=== PATIENT | female | born 1955 | race Caucasian/White ===

== ENCOUNTER → 2016-05-11 | Day surgery (SDC) | payer OTHER ==
[~2016-05-11] MED LIST: ACTO5TAB; ATROPINE SULFATE 1% OPHT SOLN 2 ML BTL ONE; DEXAMETHASONE SOD PHOS 4 MG/ML VIAL ONE; EPINEPHrine HCL (1:1000) 1 MG/ML VIAL ONE; FLURBIPROFEN 0.03% OPHT SOLN 2.5 ML BTL ONE; HYALURONIDASE/LIDOCAINE/BUPIVACAINE 11 ML SYR TL ONE; LACTATED RINGER'S 1000 ML INJ 1,000 ML ONE; MIDAZOLAM HCL 2 MG/2 ML VIAL ONE; NEOMYCIN/POLYMYXIN/DEXAMETHASONE OPTH OINT 3.5 GM TUBE ONE; ONDANSETRON HCL 4 MG/2 ML VIAL IV PUSH ONE; PHENYLEPHRINE HCL 2.5 % OPTH SOLN 15 ML BTL ONE; PRED20 PO; PROPOFOL 200 MG/20 ML AMP IV ONE; SODIUM CHLORIDE 0.9% INJ 10 ML ONE; SYNT25TA; TETRACAINE 0.5% OPTH SOLN 15 ML BTL ONE; TROPICAMIDE 1% OPHT SOLN 15 ML BTL ONE; VICOTAB4; ceFAZolin INJ 1,000 MG VIAL ONE
--- NOTE | 2016-05-25 13:37 | MP ---
cc: JAY ZAZUETA MD DATE OF SURGERY 05/21/2016 DATE OF 1955 PREOPERATIVE DIAGNOSIS Retained cataract fragments left eye. POSTOPERATIVE DIAGNOSIS Retained cataract fragments left eye. PROCEDURE Pars plana vitrectomy, pars plana lensectomy left eye. ANESTHESIA MAC SURGEON Dr. Zazueta COMPLICATIONS None PROCEDURE After informed consent was obtained, the patient was anesthetized with retrobulbar anesthesia. She was then brought to the operating room, prepped and draped in the usual sterile fashion. A wire eyelid speculum was placed in the patient's left eye. 23-gauge vitrectomy cannulas were then placed in the lower temporal, supratemporal and supranasal quadrants 3 mm posterior to the corneal scleral limbus. Infusion cannula was placed lower temporally. A core vitrectomy was then performed. The lens nucleus and cortical material was then removed using the vitreous cutter. Vitrectomy was carried out as far as possible to the vitreous space. Careful indirect ophthalmoscopy and scleral depression was then performed. No peripheral retinal breaks were noted. The three vitrectomy cannulas were then removed. Subconjunctival injections of Dexamethasone and Ancef were placed. Atropine drops, Maxitrol ointment and patch and shield were then applied. The patient tolerated the procedure well. There were no complications. She will followup tomorrow in our [facility] office. Jay Zazueta MD TAB/DJL /9:24 AM /1:23 PM
== END | disposition home or self-care (01) ==
LOC: ESDC 12:55
PROVIDERS: ATTEND Ophthalmology Retina Specialist
DX: H59.022 Cataract (lens) fragments in eye following cataract surgery, left eye (principal)
CPT/HCPCS: 00145; 67036; J0171; J0690; J1100; J2250; J2405; J3010; J7120

== ENCOUNTER 2017-07-15 04:21 | Emergency (ER) | payer BC, OTHER ==
[~2017-07-15] VITALS: Ht 154.9 cm; Wt 70.0 kg
[~2017-07-15 04:21] MED LIST changes: -ATROPINE SULFATE 1% OPHT SOLN 2 ML BTL ONE; -DEXAMETHASONE SOD PHOS 4 MG/ML VIAL ONE; -EPINEPHrine HCL (1:1000) 1 MG/ML VIAL ONE; -FLURBIPROFEN 0.03% OPHT SOLN 2.5 ML BTL ONE; -HYALURONIDASE/LIDOCAINE/BUPIVACAINE 11 ML SYR TL ONE; -LACTATED RINGER'S 1000 ML INJ 1,000 ML ONE; -MIDAZOLAM HCL 2 MG/2 ML VIAL ONE; -NEOMYCIN/POLYMYXIN/DEXAMETHASONE OPTH OINT 3.5 GM TUBE ONE; -ONDANSETRON HCL 4 MG/2 ML VIAL IV PUSH ONE; -PHENYLEPHRINE HCL 2.5 % OPTH SOLN 15 ML BTL ONE; -PROPOFOL 200 MG/20 ML AMP IV ONE; -SODIUM CHLORIDE 0.9% INJ 10 ML ONE; -TETRACAINE 0.5% OPTH SOLN 15 ML BTL ONE; -TROPICAMIDE 1% OPHT SOLN 15 ML BTL ONE; -ceFAZolin INJ 1,000 MG VIAL ONE
[2017-07-15 04:29] VITALS: BP 205/77; PULSE 94; RESP 18; TEMP 98.5; O2SAT 99
[2017-07-15 04:33] VITALS: BP 182/76
[2017-07-15 04:39] VITALS: BP 183/72; PULSE 86; RESP 18; O2SAT 98
[2017-07-15] MEDS ORDERED: LEVO-86 PO (04:39)
[2017-07-15] MEDS ORDERED: GABA600T PO (04:39)
[2017-07-15] MEDS ORDERED: OXYC-395 PO (04:39)
[2017-07-15 04:48] VITALS: BP 183/72; PULSE 82; RESP 16; O2SAT 97
[2017-07-15 05:15] VITALS: BP 141/65; PULSE 87; RESP 16; O2SAT 98
[2017-07-15] MEDS ORDERED: KETOROLAC TROMETHAMINE 30 MG/ML (IVP) VIAL IV PUSH ONE (05:30)
[2017-07-15 05:42] LABS: AUTOMATED NEUTROPHIL # 4.6 TH/MM3 (1.8-7.7); BASOPHIL % 0.5 % (0.0-2.0); EOSINOPHIL # 0.1 TH/MM3 (0-0.4); EOSINOPHIL % 1.9 % (0.0-4.0); HEMATOCRIT 34.4 % (35.0-46.0); HEMOGLOBIN 12.3 GM/DL (11.6-15.3); LYMPH % 21.5 % (9.0-44.0); LYMPHOCYTE # 1.5 TH/MM3 (1.0-4.8); MEAN CORPUSCULAR HEMOGLOBIN 33.4 PG (27.0-34.0); MEAN CORPUSCULAR HGB CONC 35.9 % (32.0-36.0); MEAN PLATELET VOLUME 8.1 FL (7.0-11.0); MONOCYTE # 0.6 TH/MM3 (0-0.9); NEUT % 67.1 % (16.0-70.0); PLATELET COUNT 274 TH/MM3 (150-450); RED CELL DISTRIBUTION WIDTH 12.2 % (11.6-17.2); WHITE BLOOD COUNT 6.9 TH/MM3 (4.0-11.0)
[2017-07-15 06:02] LABS: ALKALINE PHOSPHATASE 94 U/L (45-117); TOTAL BILIRUBIN ADULT 0.5 MG/DL (0.2-1.0); TOTAL PROTEIN 6.8 GM/DL (6.4-8.2)
[2017-07-15 06:10] LABS: ALBUMIN 3.4 GM/DL (3.4-5.0); ALT (GPT) 191 U/L (10-53); AST (GOT) 161 U/L (15-37); BICARBONATE 22.2 MEQ/L (21.0-32.0); BLOOD UREA NITROGEN 16 MG/DL (7-18); CALCIUM 8.6 MG/DL (8.5-10.1); CHLORIDE 111 MEQ/L (98-107); CREATININE 0.58 MG/DL (0.50-1.00); GLOMERULAR FILTRATION RATE 106 ML/MIN (>89); GLUCOSE,RANDOM 103 MG/DL (74-106); SODIUM (NA) 142 MEQ/L (136-145)
[2017-07-15] MEDS ORDERED: CLIN300C5 PO (06:40)
--- NOTE | 2017-07-15 06:40 | PD ---
HPI Chief Complaint: Edema Time Seen by Provider: 05:05 Travel History International Travel<30 days: No Contact w/Intl Traveler<30days: No Traveled to known affect area: No History of Present Illness HPI Patient is a 61-year-old female who comes in complaining of pain and swelling to the right side of her face. She says it has been going on for the past 3 days. She denies any pain or swelling inside of her mouth. She has not had any fever or chills. She says she has not taken anything for the pain. She does not recall any wounds or bites to her face. She does not recall any injury. She says this is never happened before. She denies any itching. Severity is mild to moderate. PFSH Past Medical History Diminished Hearing: No Musculoskeletal: Yes (OSTEOPOROSIS) Thyroid Disease: Yes (hypothyriodism) Tetanus Vaccination: Unknown Influenza Vaccination: Yes ?: Not Past Surgical History Cholecystectomy: Yes Hysterectomy: Yes Social History Alcohol Use: No Tobacco Use: Yes (APPD) Substance Use: No Allergies-Medications (Allergen,Severity, Reaction): Coded Allergies: Sulfa (Sulfonamide Antibiotics) (Verified Allergy, Severe, 07/15/17) red and itchy Reported Meds & Prescriptions Reported Meds & Active Scripts Active Reported Gabapentin 600 Mg Tab 600 Mg PO TID Oxycodone (Oxycodone HCl) 10 Mg Tab 10 Mg PO Q6H PRN Synthroid (Levothyroxine Sodium) 137 Mcg Tab 137 Mcg PO DAILY Review of Systems Except as stated in HPI: all other systems reviewed are Neg General / Constitutional: No: Fever, Chills HENT: No: Headaches, Lightheadedness Cardiovascular: No: Chest Pain or Discomfort Respiratory: No: Shortness of Breath Gastrointestinal: No: Nausea, Vomiting, Abdominal Pain Skin: Positive Change in Pigmentation Neurologic: No: Weakness, Dizziness Physical Exam Narrative GENERAL: Awake and alert, no acute distress. SKIN: Right cheek is erythematous and warm. There is no defined area of fluctuance, no wounds. HEAD: Atraumatic. Normocephalic. EYES: Pupils equal and round. No scleral icterus. Extraocular movements intact. ENT: Mucous membranes pink and moist. NECK: Trachea midline. No JVD. CARDIOVASCULAR: Regular rate and rhythm. No murmur appreciated. RESPIRATORY: No accessory muscle use. Clear to auscultation. Breath sounds equal bilaterally. GASTROINTESTINAL: Abdomen soft, non-tender, nondistended. MUSCULOSKELETAL: No obvious deformities. No clubbing. No cyanosis. No edema. NEUROLOGICAL: Awake and alert. No obvious cranial nerve deficits. Motor grossly within normal limits. Normal speech. PSYCHIATRIC: Appropriate mood and affect; insight and judgment normal. Data Data Last Documented VS Vital Signs Date Time Temp Pulse Resp B/P (MAP) Pulse Ox O2 Delivery O2 Flow Rate FiO2 07/15/17 05:15 87 16 141/65 (90) 98 Room Air 07/15/17 04:29 98.5 Orders Orders Iv Access Insert/Monitor (07/15/17 05:19) Complete Blood Count With Diff (07/15/17 05:19) Comprehensive Metabolic Panel (07/15/17 05:19) Ketorolac Inj (Toradol Inj) (07/15/17 05:30) Labs Laboratory Tests Test 07/15/17 05:25 White Blood Count 6.9 TH/MM3 Red Blood Count 3.70 MIL/MM3 Hemoglobin 12.3 GM/DL Hematocrit 34.4 % Mean Corpuscular Volume 93.0 FL Mean Corpuscular Hemoglobin 33.4 PG Mean Corpuscular Hemoglobin Concent 35.9 % Red Cell Distribution Width 12.2 % Platelet Count 274 TH/MM3 Mean Platelet Volume 8.1 FL Neutrophils (%) (Auto) 67.1 % Lymphocytes (%) (Auto) 21.5 % Monocytes (%) (Auto) 9.0 % Eosinophils (%) (Auto) 1.9 % Basophils (%) (Auto) 0.5 % Neutrophils # (Auto) 4.6 TH/MM3 Lymphocytes # (Auto) 1.5 TH/MM3 Monocytes # (Auto) 0.6 TH/MM3 Eosinophils # (Auto) 0.1 TH/MM3 Basophils # (Auto) 0.0 TH/MM3 CBC Comment DIFF FINAL Differential Comment Blood Urea Nitrogen 16 MG/DL Creatinine 0.58 MG/DL Random Glucose 103 MG/DL Total Protein 6.8 GM/DL Albumin 3.4 GM/DL Calcium Level 8.6 MG/DL Alkaline Phosphatase 94 U/L Aspartate Amino Transf (AST/SGOT) 161 U/L Alanine Aminotransferase (ALT/SGPT) 191 U/L Total Bilirubin 0.5 MG/DL Sodium Level 142 MEQ/L Potassium Level 3.9 MEQ/L Chloride Level 111 MEQ/L Carbon Dioxide Level 22.2 MEQ/L Anion Gap 9 MEQ/L Estimat Glomerular Filtration Rate 106 ML/MIN MDM Medical Decision Making Medical Screen Exam Complete: Yes Emergency Medical Condition: Yes Medical Record Reviewed: Yes Differential Diagnosis Cellulitis versus allergic reaction versus abscess Narrative Course Patient is a 61-year-old female who comes in complaining of pain and swelling to the right side of her face. Exam shows erythema and warmth to the right cheek. IV established, labs sent. Labs show elevated AST and ALT. Patient is not currently having any abdominal pain. She is advised of these results and advised follow-up with a primary doctor regarding this. Patient given Toradol for pain. She will be discharged with a prescription for clindamycin. She is advised to take all the antibiotic return for any worsening symptoms. Diagnosis Primary Impression: Facial cellulitis Patient Instructions: Cellulitis (ED), General Instructions Additional Instructions: Take all of your antibiotic. Follow-up with your primary care doctor. Your liver enzymes are elevated today, avoid Tylenol and have these rechecked with your primary care doctor. Return to the ED as needed for any worsening symptoms. Scripts Clindamycin (Clindamycin) 300 Mg Cap 600 MG PO Q8H for Infection for 7 Days, #42 CAP 0 Refills Prov: Mehnaz Parish MD 07/15/17 Disposition: 01 DISCHARGE HOME Condition: Stable Mehnaz Parish MD Jul 15, 2017 06:40
[2017-07-15 06:46] VITALS: BP 134/60
== END 2017-07-15 06:50 | disposition home or self-care (01) ==
LOC: NEPC 04:21
DX: L03.211 Cellulitis of face (principal); M81.0 Age-related osteoporosis without current pathological fracture; E03.9 Hypothyroidism, unspecified; F17.200 Nicotine dependence, unspecified, uncomplicated; Z79.899 Other long term (current) drug therapy; Z88.2 Allergy status to sulfonamides
CPT/HCPCS: 80053; 85025; 96374; 99284; J1885

== ENCOUNTER 2017-10-18 19:56 | Emergency (ER) | payer BC, OTHER ==
[~2017-10-18] VITALS: Ht 154.9 cm; Wt 77.3 kg
[~2017-10-18 19:56] MED LIST changes: -ACTO5TAB; +CLIN300C5 PO; +GABA600T PO; +LEVO-86 PO; +OXYC-395 PO; -PRED20 PO; -SYNT25TA; -VICOTAB4
[2017-10-18 20:15] VITALS: BP 146/66; PULSE 70; RESP 19; TEMP 98.8; O2SAT 97
[2017-10-18 21:57] VITALS: BP 150/64; PULSE 66; RESP 18; O2SAT 98
--- NOTE | 2017-10-18 22:05 | PD ---
HPI Chief Complaint: Edema Time Seen by Provider: 21:55 Travel History International Travel<30 days: No Contact w/Intl Traveler<30days: No Traveled to known affect area: No History of Present Illness HPI 62-year-old female with history of tobacco use and hypothyroidism presents after being sent by urgent care for evaluation of dyspnea and bilateral lower extremity edema. She reports over the past few weeks she has noticed mild dyspnea with exertion. She reports over the past 3 days she has incidentally noticed some swelling around her ankles. She reports some associated discomfort with this. Symptoms are mild to moderate, no obvious aggravating or relieving factors. She reports that she has also gained 12 pounds over the past 12 days. She denies chest pain, cough, congestion, chest pain, abdominal pain, nausea or vomiting. No history of CHF, cirrhosis, kidney disease, DVT or PE, no recent travel recent surgery. No other complaints at this time. PFSH Past Medical History Diminished Hearing: No Medical other: Yes (DDD) Musculoskeletal: Yes (OSTEOPOROSIS) Thyroid Disease: Yes (hypothyriodism) Tetanus Vaccination: < 5 Years Past Surgical History Cholecystectomy: Yes Hysterectomy: Yes Social History Alcohol Use: No Tobacco Use: Yes (APPD) Substance Use: No Allergies-Medications (Allergen,Severity, Reaction): Coded Allergies: Sulfa (Sulfonamide Antibiotics) (Verified Allergy, Severe, 10/18/17) red and itchy Reported Meds & Prescriptions Reported Meds & Active Scripts Active Reported Gabapentin 600 Mg Tab 600 Mg PO TID Oxycodone (Oxycodone HCl) 10 Mg Tab 10 Mg PO Q6H PRN Synthroid (Levothyroxine Sodium) 137 Mcg Tab 137 Mcg PO DAILY Review of Systems Except as stated in HPI: all other systems reviewed are Neg Physical Exam Narrative GENERAL: Well developed well-nourished female no acute distress SKIN: Warm and dry. HEAD: Atraumatic. Normocephalic. EYES: Pupils equal and round. No scleral icterus. No injection or drainage. ENT: No nasal bleeding or discharge. Mucous membranes pink and moist. NECK: Trachea midline. No JVD. CARDIOVASCULAR: Regular rate and rhythm. No murmur appreciated. RESPIRATORY: No accessory muscle use. Clear to auscultation. Breath sounds equal bilaterally. GASTROINTESTINAL: Abdomen soft, non-tender, nondistended. Hepatic and splenic margins not palpable. MUSCULOSKELETAL: No obvious deformities. There is mild nonpitting edema around the ankles bilaterally. NEUROLOGICAL: Awake and alert. No obvious cranial nerve deficits. Motor grossly within normal limits. Normal speech. PSYCHIATRIC: Appropriate mood and affect; insight and judgment normal. Data Data Last Documented VS Vital Signs Date Time Temp Pulse Resp B/P (MAP) Pulse Ox O2 Delivery O2 Flow Rate FiO2 10/18/17 21:57 66 18 150/64 (92) 98 Room Air 10/18/17 20:15 98.8 Orders Orders Electrocardiogram (10/18/17 22:02) B-Type Natriuretic Peptide (10/18/17 22:02) Ckmb (Isoenzyme) Profile (10/18/17 22:02) Complete Blood Count With Diff (10/18/17 22:) Comprehensive Metabolic Panel (10/18/17 22:) Magnesium (Mg) (10/18/17 22:02) Prothrombin Time / Inr (Pt) (10/18/17 22:02) Act Partial Throm Time (Ptt) (10/18/17 22:02) Troponin I (10/18/17 22:02) Chest, Single Ap (10/18/17 22:02) Ecg Monitoring (10/18/17 22:02) Iv Access Insert/Monitor (10/18/17 22:02) Oximetry (10/18/17 22:02) Us Leg Venous Doppler Bilat (10/18/17 22:02) CKMB (10/18/17 22:05) CKMB% (10/18/17 22:05) Ed Discharge Order (10/19/17 00:01) Labs Laboratory Tests Test 10/18/17 22:05 10/18/17 23:37 Blood Urea Nitrogen 6 MG/DL Creatinine 0.57 MG/DL Random Glucose 81 MG/DL Total Protein 7.1 GM/DL Albumin 3.6 GM/DL Calcium Level 8.2 MG/DL Magnesium Level 2.2 MG/DL Alkaline Phosphatase 92 U/L Aspartate Amino Transf (AST/SGOT) 48 U/L Alanine Aminotransferase (ALT/SGPT) 80 U/L Total Bilirubin 0.3 MG/DL Sodium Level 143 MEQ/L Potassium Level 3.9 MEQ/L Chloride Level 109 MEQ/L Carbon Dioxide Level 25.7 MEQ/L Anion Gap 8 MEQ/L Estimat Glomerular Filtration Rate 108 ML/MIN Total Creatine Kinase 239 U/L Creatine Kinase MB 2.7 NG/ML Creatine Kinase MB % 1.1 % Troponin I LESS THAN 0.02 NG/ML B-Type Natriuretic Peptide 77 PG/ML White Blood Count 4.9 TH/MM3 Red Blood Count 3.73 MIL/MM3 Hemoglobin 12.0 GM/DL Hematocrit 35.4 % Mean Corpuscular Volume 95.0 FL Mean Corpuscular Hemoglobin 32.2 PG Mean Corpuscular Hemoglobin Concent 33.9 % Red Cell Distribution Width 13.0 % Platelet Count 233 TH/MM3 Mean Platelet Volume 8.1 FL Neutrophils (%) (Auto) 50.2 % Lymphocytes (%) (Auto) 35.1 % Monocytes (%) (Auto) 9.8 % Eosinophils (%) (Auto) 4.1 % Basophils (%) (Auto) 0.8 % Neutrophils # (Auto) 2.4 TH/MM3 Lymphocytes # (Auto) 1.7 TH/MM3 Monocytes # (Auto) 0.5 TH/MM3 Eosinophils # (Auto) 0.2 TH/MM3 Basophils # (Auto) 0.0 TH/MM3 CBC Comment DIFF FINAL Differential Comment MDM Medical Decision Making Medical Screen Exam Complete: Yes Emergency Medical Condition: Yes Medical Record Reviewed: Yes Differential Diagnosis New onset CHF, hypoalbuminemia, PE/DVT, nephrotic syndrome, pleural effusion, pneumonia Narrative Course The patient was placed on ECG monitoring pulse oximetry. A 12 EKG was obtained. Lab work, chest x-ray been ordered. Chest x-ray reveals mild atelectasis. CBC is unremarkable. Lab work is unremarkable. BMP was within normal limits. Bilateral lower extremity ultrasound was negative. I suspect that her mild nonpitting lower extremity edema secondary to dependent edema. At this point in time the plan is to discharge the patient have her follow-up with a primary care physician. She is stable for discharge. Diagnosis Primary Impression: Dependent edema Additional Instructions: Elevate the legs as needed, particularly after walking long distances. Follow- up close with primary care physician. Return for any emergent medical conditions. Med/Other Pt SpecificInfo: No Change to Meds Disposition: 01 DISCHARGE HOME Condition: Stable Blas Teixeira Oct 18, 2017 22:05
[2017-10-18 22:41] LABS: ALKALINE PHOSPHATASE 92 U/L (45-117); TOTAL BILIRUBIN ADULT 0.3 MG/DL (0.2-1.0); TOTAL PROTEIN 7.1 GM/DL (6.4-8.2); TROPONIN I LESS THAN 0.02 NG/ML (0.02-0.05)
--- NOTE | 2017-10-18 22:47 | RADRPT ---
EXAM DATE: 10/18/2017 10:40 PM EDT AGE/SEX: 62 years / Female INDICATIONS: Short of breath and lower extremity swelling for 3 days. CLINICAL DATA: This is the patient's initial encounter. Patient reports that signs and symptoms have been present for 3 days and indicates a pain score of 0/10. MEDICAL/SURGICAL HISTORY: None. None. COMPARISON: No prior exams available for comparison. FINDINGS: A single AP view of the chest demonstrates the diminished lung volumes and bibasilar densities. Heart normal in size. The cardiomediastinal contours are unremarkable. Osseous structures are intact. CONCLUSION: Diminished lung volumes and probable bibasilar atelectasis. Electronically signed by: Milton Hermosillo MD 10/18/2017 10:45 PM EDT
[2017-10-18 22:54] LABS: ALBUMIN 3.6 GM/DL (3.4-5.0); ALT (GPT) 80 U/L (10-53); AST (GOT) 48 U/L (15-37); BICARBONATE 25.7 MEQ/L (21.0-32.0); BLOOD UREA NITROGEN 6 MG/DL (7-18); CALCIUM 8.2 MG/DL (8.5-10.1); CHLORIDE 109 MEQ/L (98-107); CREATININE 0.57 MG/DL (0.50-1.00); GLOMERULAR FILTRATION RATE 108 ML/MIN (>89); GLUCOSE,RANDOM 81 MG/DL (74-106); MAGNESIUM 2.2 MG/DL (1.5-2.5); SODIUM (NA) 143 MEQ/L (136-145)
--- NOTE | 2017-10-18 23:45 | RADRPT ---
EXAM DATE: 10/18/2017 11:41 PM EDT AGE/SEX: 62 years / Female INDICATIONS: Bilateral lower extremity edema. CLINICAL DATA: This is the patient's initial encounter. Patient reports that signs and symptoms have been present for 3 days and indicates a pain score of 7/10. MEDICAL/SURGICAL HISTORY: . Hypothyroidism. Tobacco use. . Cholecystectomy. Hysterectomy. COMPARISON: No prior exams available for comparison. TECHNIQUE: Venous ultrasound of both lower extremities was performed from the inguinal ligament to t he proximal calf. Real-time, color Doppler and spectral tracing, compression and augmentation techni ques were used. FINDINGS: Right Leg: Normal compression of the deep venous system from the inguinal region to the proximal [place] f. No echogenic clot is seen. Normal response of the venous system to augmentation and respiration. Left Leg: Normal compression of the deep venous system from the inguinal region to the proximal calf . No echogenic clot is seen. Normal response of the venous system to augmentation and respiration. Other: None. CONCLUSION: 1. The study is negative for bilateral lower extremity deep venous thrombosis. Electronically signed by: Dmitry Roberts MD 10/18/2017 11:44 PM EDT
--- NOTE | 2017-10-18 23:47 | PD ---
Physical Exam Narrative I, Dr. Whitehead, have reviewed the advance practice practitioner's documentation and am in agreement, met with the patient face to face, made the diagnosis, and the medical decision making was done by me. *My assessment and Findings: Pulmonary edema vs. CHF vs. valve insufficiency 62yo F was sent here from urgent care because she has been feeling sob while walking for the last week. [place] said usually she walks a mile but now feels sob after walking less than a mile. Pt does not feel sob at rest. Denies any chest pain. She is very well appearing and has very mild edema in bilateral ankle. CXR showed diminished lung volumes and probable bibasilar atelectasis. Labs reviewed, no leukocytosis. H/H normal. CMP showed mildly elevated liver enzymes. This is lower than last time. Troponin negative. BNP normal at 77. Normal creatinine. US showed no DVT in bilateral lower extremity. Return precautions given. Data Data Last Documented VS Vital Signs Date Time Temp Pulse Resp B/P (MAP) Pulse Ox O2 Delivery O2 Flow Rate FiO2 10/18/17 21:57 66 18 150/64 (92) 98 Room Air 10/18/17 20:15 98.8 Orders Orders Electrocardiogram (10/18/17 22:02) B-Type Natriuretic Peptide (10/18/17 22:02) Ckmb (Isoenzyme) Profile (10/18/17 22:02) Complete Blood Count With Diff (10/18/17 22:02) Comprehensive Metabolic Panel (10/18/17 22:02) Magnesium (Mg) (10/18/17 22:02) Prothrombin Time / Inr (Pt) (10/18/17 22:02) Act Partial Throm Time (Ptt) (10/18/17 22:02) Troponin I (10/18/17 22:02) Chest, Single Ap (10/18/17 22:02) Ecg Monitoring (10/18/17 22:02) Iv Access Insert/Monitor (10/18/17 22:02) Oximetry (10/18/17 22:02) Us Leg Venous Doppler Bilat (10/18/17 22:02) CKMB (10/18/17 22:05) CKMB% (10/18/17 22:05) Ed Discharge Order (10/19/17 00:01) Labs Laboratory Tests Test 10/18/17 22:05 10/18/17 23:37 Prothrombin Time 9.9 SEC Prothromb Time International Ratio 1.0 RATIO Activated Partial Thromboplast Time 27.5 SEC Blood Urea Nitrogen 6 MG/DL Creatinine 0.57 MG/DL Random Glucose 81 MG/DL Total Protein 7.1 GM/DL Albumin 3.6 GM/DL Calcium Level 8.2 MG/DL Magnesium Level 2.2 MG/DL Alkaline Phosphatase 92 U/L Aspartate Amino Transf (AST/SGOT) 48 U/L Alanine Aminotransferase (ALT/SGPT) 80 U/L Total Bilirubin 0.3 MG/DL Sodium Level 143 MEQ/L Potassium Level 3.9 MEQ/L Chloride Level 109 MEQ/L Carbon Dioxide Level 25.7 MEQ/L Anion Gap 8 MEQ/L Estimat Glomerular Filtration Rate 108 ML/MIN Total Creatine Kinase 239 U/L Creatine Kinase MB 2.7 NG/ML Creatine Kinase MB % 1.1 % Troponin I LESS THAN 0.02 NG/ML B-Type Natriuretic Peptide 77 PG/ML White Blood Count 4.9 TH/MM3 Red Blood Count 3.73 MIL/MM3 Hemoglobin 12.0 GM/DL Hematocrit 35.4 % Mean Corpuscular Volume 95.0 FL Mean Corpuscular Hemoglobin 32.2 PG Mean Corpuscular Hemoglobin Concent 33.9 % Red Cell Distribution Width 13.0 % Platelet Count 233 TH/MM3 Mean Platelet Volume 8.1 FL Neutrophils (%) (Auto) 50.2 % Lymphocytes (%) (Auto) 35.1 % Monocytes (%) (Auto) 9.8 % Eosinophils (%) (Auto) 4.1 % Basophils (%) (Auto) 0.8 % Neutrophils # (Auto) 2.4 TH/MM3 Lymphocytes # (Auto) 1.7 TH/MM3 Monocytes # (Auto) 0.5 TH/MM3 Eosinophils # (Auto) 0.2 TH/MM3 Basophils # (Auto) 0.0 TH/MM3 CBC Comment DIFF FINAL Differential Comment MDM Supervised Visit with ZOHREH: Yes Interpretation(s) EKG: NSR 65bpm. Normal axis. No ST segment elevation or depression. Diagnosis Primary Impression: Dependent edema Dejah Whitehead DO Oct 18, 2017 23:47
[2017-10-18 23:52] LABS: AUTOMATED NEUTROPHIL # 2.4 TH/MM3 (1.8-7.7); BASOPHIL % 0.8 % (0.0-2.0); EOSINOPHIL # 0.2 TH/MM3 (0-0.4); EOSINOPHIL % 4.1 % (0.0-4.0); HEMATOCRIT 35.4 % (35.0-46.0); LYMPH % 35.1 % (9.0-44.0); LYMPHOCYTE # 1.7 TH/MM3 (1.0-4.8); MEAN CORPUSCULAR HEMOGLOBIN 32.2 PG (27.0-34.0); MEAN CORPUSCULAR HGB CONC 33.9 % (32.0-36.0); MEAN PLATELET VOLUME 8.1 FL (7.0-11.0); MONO % 9.8 % (0.0-8.0); MONOCYTE # 0.5 TH/MM3 (0-0.9); NEUT % 50.2 % (16.0-70.0); PLATELET COUNT 233 TH/MM3 (150-450); RED BLOOD COUNT 3.73 MIL/MM3 (4.00-5.30); WHITE BLOOD COUNT 4.9 TH/MM3 (4.0-11.0)
[2017-10-19 00:19] LABS: PROTHROMBIN TIME - PATIENT 9.9 SEC (9.8-11.6)
--- NOTE | 2017-10-19 17:43 | EKG ---
Date Performed: 10/18/2017 Time Performed: 22:14:21 PTAGE: 62 years EKG: Sinus rhythm NORMAL ECG NO PREVIOUS TRACING DOCTOR: Carola García Interpretating Date/Time 10/19/2017 17:41:18
== END 2017-10-19 00:37 | disposition home or self-care (01) ==
LOC: NEPD 19:56
DX: R60.0 Localized edema (principal); R06.02 Shortness of breath; R74.8 Abnormal levels of other serum enzymes; E03.9 Hypothyroidism, unspecified; M81.0 Age-related osteoporosis without current pathological fracture; F17.200 Nicotine dependence, unspecified, uncomplicated; Z79.899 Other long term (current) drug therapy
CPT/HCPCS: 71045; 80053; 82550; 82552; 83735; 83880; 84484; 85025; 85610; 85730; 93005; 93970; 99285